=== PATIENT | male | born 1975 | race Caucasian/White ===

== ENCOUNTER 2017-10-15 10:36 | Outpatient (CLI) ==
[2013-07-17 05:08] VITALS: BMI 38.0
--- NOTE | 2017-10-15 12:21 | DI ---
EXAM: Three views of the sacrum and coccyx. History: Coccyx pain. Findings: No acute fracture or dislocation. No abnormal calcifications or radiopaque foreign bodies . Joint spaces are preserved. Impression: No acute osseous abnormality
== END 2017-10-15 10:37 | disposition home or self-care (01) ==
LOC: RAD 10:36
PROVIDERS: ATTEND Nurse Practitioner Family
DX: M53.3 Sacrococcygeal disorders, not elsewhere classified (principal); W00.9XXA Unspecified fall due to ice and snow, initial encounter

== ENCOUNTER 2017-11-19 08:08 | Outpatient (CLI) ==
[2013-07-17 05:08] VITALS: BMI 38.0
--- NOTE | 2017-11-19 16:12 | MRI ---
EXAM: Lumbar spine MRI without contrast. HISTORY: Low back pain. COMPARISON: None. TECHNIQUE: Multiplanar, multisequence MR images were acquired of the lumbar spine without contrast. FINDINGS: Conus medullaris ends at T12-L1 and has normal signal intensity. Canal diameter is develo pmentally narrow. Five non-rib bearing lumbar vertebra are present. There is minor mid lumbar levos coliosis centered at L3-4. The lumbar vertebra normal in height and intrinsic bone marrow signal. S mall ventral and lateral osteophytes are present in the lumbar spine and there is disc desiccation fr om L2-3 through L4-5. At L2-3, there is a mild disc bulge that is asymmetric to the left with ventra l and left far endplate osteophytes, endplate irregularity and a prominent chronic Schmorl's node al tami the L2 inferior endplate with focal bright STIR signal edema. Moderate type 2 anterior endplate changes are present along the L3 anterior superior endplate. At L3-4, there is a mild disc bulge ha t is asymmetric to the right with anterior and right lateral endplate osteophytes. At L4-5, there i s a minor disc bulge that is asymmetric to the right with small anterior and right lateral endplate o steophytes and irregularity of the L4 inferior L4 endplate which has a prominent chronic Schmorl's no de with bright STIR signal. The partially visualized kidneys are unremarkable. There are no paravertebral masses. L1-2: The intervertebral disc is normal. There is minor bilateral facet arthropathy. In this patie nt with a developmentally narrow canal, there is mild to moderate left foraminal stenosis. L2-3: There is a mild disc bulge that is asymmetric to the left and minor left neural foraminal sten osis. L3-4: There is a mild disc bulge and mild right and mild to moderate left neural foraminal stenosis. There is no central canal stenosis. L4-5: There is a minor disc bulge and mild bilateral hypertrophic facet arthropathy and ligamentum f lavum hypertrophy. There is mild bilateral foraminal stenosis, greater on the left. L5-S1: There is a minor posterior disc bulge and mild bilateral hypertrophic facet arthropathy and l igamentum flavum hypertrophy. This narrows the left lateral recess where there may be encroachment o n the traversing left S1 nerve. There is moderate tapering of the thecal sac at this level and it en ds at S1. IMPRESSION: 1. Mild lumbar degenerative spondylosis. 2. No lumbar disc herniations, pars interarticularis defects or central canal stenosis.
== END 2017-11-19 08:09 | disposition home or self-care (01) ==
LOC: RAD 08:08
PROVIDERS: ATTEND Nurse Practitioner Family
DX: M54.9 Dorsalgia, unspecified (principal); G89.29 Other chronic pain; M53.3 Sacrococcygeal disorders, not elsewhere classified; M54.10 Radiculopathy, site unspecified; W00.9XXS Unspecified fall due to ice and snow, sequela